=== PATIENT | male | born 1980 | race Native Hawaiian/Other Pacific Islander ===

== ENCOUNTER 2017-12-22 11:15 | Emergency (ER) | payer OTHER ==
[~2017-12-22] VITALS: Ht 170.2 cm; Wt 172.4 kg
[2017-12-22 11:18] VITALS: TEMP 98.2
[2017-12-22 13:05] VITALS: BP 152/85
== END 2017-12-22 13:05 | disposition home or self-care (01) ==
LOC: ED 11:15
DX: J40 Bronchitis, not specified as acute or chronic (principal)
CPT/HCPCS: 93005; 99283

== ENCOUNTER 2018-08-30 16:37 | Inpatient (IN) | payer OTHER ==
[~2018-08-30] VITALS: Ht 170.2 cm; Wt 164.8 kg
[2018-08-30 16:48] VITALS: BP 125/84; TEMP 99.6
[2018-08-30 18:03] LABS: PLATELET COUNT 226 K/uL (142-355)
[2018-08-30 18:07] VITALS: TEMP 99.9
[2018-08-30 18:07] LABS: POTASSIUM 3.9 mmol/L (3.6-5.2); SODIUM 132 mmol/L (136-145)
[2018-08-31 01:16] VITALS: BP 166/92; TEMP 99.9; Ht 170.2 cm; Wt 164.8 kg
--- NOTE | 2018-08-31 01:30 | NUR ---
LATE ENTRY FROM 08/30/18 AT 2020. PATIENT BROUGHT TO ROOM FROM ER IN A WHEELCHAIR. PATIENT ORIENTED TO ROOM. CALL LIGHT EXPLAINED AND PLACED WITHIN REACH. PATIENT IN STABLE CONDITION.
--- NOTE | 2018-08-31 01:34 | NUR ---
LATE ENTRY FROM 08/30/18 AT 2020 ON INITIAL ASSESSMENT PATIENT HAS REDNESS TO LEFT LEG FROM BEHIND THE KNEE DOWN TO CALF. NO SWELLING NOTED TO LEFT LEG. NEGATIVE HARRIS'S SIGN.
[2018-08-31 04:18] VITALS: BP 137/76; TEMP 100.7
--- NOTE | 2018-08-31 04:19 | NUR ---
PATIENT WAS ADMITTED WITH ELEVATED D-DIMER, BRONCHITIS AND ACUTE CELLULITIS TO LEFT LEG, IBW 148+/-10% AND IS 234%IBW, BMI 54 AND IS HIGHER THAN THE HGHEST STAGE OF OBESITY AND IS ON A REGULAR DIET PLAN. KCAL NEEDS FOR IBW [id number] AND FOR WEIGHT <4200 TO PROMOTE WEIGHT LOSS IS NEEDED. PROTEIN NEEDS FOR IBW 67 GRAMS AND FOR WEIGHT 158 GRAMS AND FLUID NEEDS = [id number] ML PER DAY. RECOMMEND: 1- CHANGE TO A NCS DIET PLAN 2- IF THE CELLULITIS IS OPNE ADD VIT C 500 MG BID AND [id number] 220 MG PER DAY.
[2018-08-31 05:37] LABS: PLATELET COUNT 197 K/uL (142-355)
[2018-08-31 06:01] LABS: POTASSIUM 3.5 mmol/L (3.6-5.2)
[2018-08-31 08:00] VITALS: BP 130/66; TEMP 99
[2018-08-31 12:00] VITALS: BP 107/53; TEMP 98.8
[2018-08-31 16:02] VITALS: BP 123/64; TEMP 98.7
[2018-08-31 20:23] VITALS: BP 120/64; TEMP 99.3
[2018-09-01] VITALS: BP 110/70; TEMP 99.3
[2018-09-01 04:00] VITALS: BP 110/71; TEMP 99.3
[2018-09-01 04:06] LABS: PLATELET COUNT 187 K/uL (142-355)
[2018-09-01 06:14] LABS: POTASSIUM 3.7 mmol/L (3.6-5.2)
[2018-09-01 08:00] VITALS: BP 133/75; TEMP 98.6
--- NOTE | 2018-09-01 10:46 | NUR ---
1000 MARK AT BS AT THIS TIME. LEFT LOWER EXT MORE EDEMATOUS THIS AM. REDNESS MORE PROMINENT TO LOWER EXT AND EXTENDS UPWARDS TO UPPER THIGH. MARK AWARE. WILL CON'T TO MONITOR
[2018-09-01 12:00] VITALS: BP 128/66; TEMP 98.4
[2018-09-01 16:00] VITALS: BP 117/57; TEMP 98.3
[2018-09-01 20:00] VITALS: BP 134/68; TEMP 98.6
[2018-09-02] VITALS: BP 107/58; TEMP 98.4
[2018-09-02 04:00] VITALS: BP 109/72; TEMP 98.4
[2018-09-02 07:08] LABS: PLATELET COUNT 194 K/uL (142-355)
--- NOTE | 2018-09-02 07:45 | NUR ---
AM ASSESSMENT COMPLETE
[2018-09-02 08:06] VITALS: BP 124/51; TEMP 98.4
[2018-09-02 08:18] LABS: POTASSIUM 3.8 mmol/L (3.6-5.2)
--- NOTE | 2018-09-02 09:08 | NUR ---
PT STATES THAT THE COVER BOTHERS HIS LEG. I OFFERED TO DRAPE COVER OVER END OF BED TO KEEP COVER FROM TOUCHING PTS LEG, PT STATED THAT IT WAS NOT NECESSARRY TO DO THAT.
[2018-09-02 12:20] VITALS: BP 122/63; TEMP 98.3
--- NOTE | 2018-09-02 14:45 | NUR ---
LAB DRAW ATTEMPT, NO RESULT.
[2018-09-02 16:09] VITALS: BP 120/68; TEMP 98.7
--- NOTE | 2018-09-02 17:24 | NUR ---
FAMILY AT BS
[2018-09-02 20:00] VITALS: BP 124/64; TEMP 99
[2018-09-03] VITALS: BP 124/73; TEMP 98.8
[2018-09-03 04:00] VITALS: BP 130/71; TEMP 98.3
[2018-09-03 07:02] LABS: PLATELET COUNT 242 K/uL (142-355)
[2018-09-03 07:11] LABS: POTASSIUM 3.7 mmol/L (3.6-5.2)
--- NOTE | 2018-09-03 08:00 | NUR ---
RIGHT CALF MEASURES 47 1/2 CM LEFT CALF REDDENED AND WARM TO TOUCH, MEASURES 53 1/2 CM
[2018-09-03 08:03] VITALS: BP 117/51; TEMP 98.4
[2018-09-03 12:11] VITALS: BP 117/51; TEMP 98.4
[2018-09-03 16:03] VITALS: BP 136/69; TEMP 98.4
[2018-09-03 20:07] VITALS: BP 145/75; TEMP 98.4
[2018-09-04 00:06] VITALS: BP 117/52; TEMP 98.7
[2018-09-04 04:00] VITALS: BP 110/62; TEMP 98.3
[2018-09-04 06:09] LABS: PLATELET COUNT 218 K/uL (142-355)
[2018-09-04 06:29] LABS: POTASSIUM 4.1 mmol/L (3.6-5.2)
[2018-09-04 08:04] VITALS: BP 126/60; TEMP 98.2
[2018-09-04] MEDS ORDERED: 904272561 PO (10:13)
[2018-09-04] MEDS ORDERED: TRAM50TA PO (10:13)
--- NOTE | 2018-09-04 12:00 | NUR ---
PTS IV ANTIBIOTIC COMPLETE. D/C ORDERS PLACED BY JACINTA LANGFORD. IV D/C'D. TELE D/C'D. PT INSTRUCTED TO MAKE FU WITH PCP IN 3-5 DAYS. PT GIVEN PRESCRIPTION FOR PAIN MEDICINE AND ORAL ANTIBIOTICS. ALL D/C INSTRUCTIONS GIVEN. PT HAS NO FUTHER QUESTIONS. NO PROBLEMS NOTED. PT AMBULATED OUT AT THIS TIME.
[2018-09-04 12:27] VITALS: BP 156/80; TEMP 97.7
== END 2018-09-04 11:50 | disposition home or self-care (01) | DRG 603 ==
LOC: ED 16:37 → MED/SURG 19:20
PROVIDERS: Emergency Medicine
DX: L03.116 Cellulitis of left lower limb (principal); E87.1 Hypo-osmolality and hyponatremia; G47.33 Obstructive sleep apnea (adult) (pediatric); R73.03 Prediabetes; Z79.01 Long term (current) use of anticoagulants
CPT/HCPCS: 36415; 80053; 80202; 81000; 82550; 82553; 83036; 83605; 84484; 85027; 85379; 99283; J0696; J1650; J2175; J3370; J3490; Q9963

== ENCOUNTER 2019-04-15 22:33 | Emergency (ER) | payer OTHER ==
[~2019-04-15] VITALS: Ht 170.2 cm; Wt 152.0 kg
[~2019-04-15 22:33] MED LIST: 904272561 PO; TRAM50TA PO
[2019-04-15 22:40] VITALS: BP 136/77; TEMP 97.8
== END 2019-04-15 23:43 | disposition home or self-care (01) ==
LOC: ED 22:33
DX: L03.116 Cellulitis of left lower limb (principal)
CPT/HCPCS: 99282; 99283

== ENCOUNTER 2020-04-04 16:52 | Emergency (ER) | payer OTHER ==
[~2020-04-04] VITALS: Ht 170.2 cm; Wt 152.0 kg
[2020-04-04 18:09] LABS: PLATELET COUNT 168 K/uL (142-355)
[2020-04-04 18:19] LABS: POTASSIUM 4.2 mmol/L (3.6-5.2); SODIUM 136 mmol/L (136-145)
[2020-04-05 02:00] VITALS: BP 132/78; TEMP 98.3
== END 2020-04-05 02:00 | disposition still patient (30) ==
LOC: ED 16:52
PROVIDERS: Emergency Medicine
DX: J18.0 Bronchopneumonia, unspecified organism (principal); U07.1 COVID-19; F17.210 Nicotine dependence, cigarettes, uncomplicated; Z11.59 Encounter for screening for other viral diseases
CPT/HCPCS: 80053; 82550; 82553; 83605; 84484; 85027; 85379; 87040; 87635; 93005; 96360; 96372; 96375; 99284; J0696; J1885; U0003

== ENCOUNTER 2020-09-10 19:06 | Observation (INO) | payer OTHER ==
[~2020-09-10] VITALS: Ht 170.2 cm; Wt 169.0 kg
[2020-09-10 19:18] VITALS: BP 126/64; TEMP 98.4
[2020-09-10 19:30] VITALS: BP 126/72
[2020-09-10 19:49] LABS: PLATELET COUNT 229 K/uL (142-355)
[2020-09-10 19:56] LABS: POTASSIUM 3.9 mmol/L (3.6-5.2); SODIUM 132 mmol/L (136-145)
[2020-09-10 20:00] VITALS: BP 118/74
[2020-09-10 20:30] VITALS: BP 125/74
[2020-09-10 22:40] VITALS: BP 138/85; TEMP 99.6; Ht 170.2 cm; Wt 169.0 kg
[2020-09-11] VITALS: BP 96/45; TEMP 97.9
[2020-09-11 04:12] VITALS: BP 132/75; TEMP 99.5
[2020-09-11 08:00] VITALS: BP 138/75; TEMP 98.3
[2020-09-11 12:00] VITALS: BP 115/67; TEMP 98
[2020-09-11 16:00] VITALS: BP 151/68; TEMP 98.3
== END 2020-09-11 20:10 | disposition home or self-care (01) ==
LOC: ED 19:06 → MED/SURG 20:45
PROVIDERS: Emergency Medicine Emergency Medical Services; ADMIT Internal Medicine Endocrinology, Diabetes & Metabolism; ATTEND Internal Medicine Endocrinology, Diabetes & Metabolism
DX: R07.89 Other chest pain (principal); L03.116 Cellulitis of left lower limb; E66.01 Morbid (severe) obesity due to excess calories; I11.0 Hypertensive heart disease with heart failure; I50.9 Heart failure, unspecified; Z91.19 Patient's noncompliance with other medical treatment and regimen; R06.09 Other forms of dyspnea; G47.33 Obstructive sleep apnea (adult) (pediatric)
CPT/HCPCS: 36415; 80053; 83605; 83735; 84484; 85027; 85379; 85610; 87040; 87635; 93005; 96360; 96361; 96365; 96366; 96367; 96372; 99220; 99284; G0378; J1650; J2543; U0003

== ENCOUNTER 2022-01-17 18:35 | Inpatient (IN) | payer OTHER ==
[~2022-01-17] VITALS: Ht 170.2 cm; Wt 176.7 kg
[2022-01-17 18:35] VITALS: BP 103/71; TEMP 101.4
[2022-01-17 19:18] LABS: PLATELET COUNT 202 K/uL (142-355)
[2022-01-17 19:29] LABS: POTASSIUM 3.6 mmol/L (3.6-5.2)
[2022-01-17 22:10] VITALS: TEMP 98.7
[2022-01-18 01:56] VITALS: BP 103/47; TEMP 98.7; Ht 170.2 cm; Wt 176.7 kg
[2022-01-18 03:49] VITALS: BP 144/73; TEMP 98.8
[2022-01-18 05:03] LABS: PLATELET COUNT 187 K/uL (142-355)
[2022-01-18 08:00] VITALS: BP 137/58; TEMP 97.7
[2022-01-18 12:00] VITALS: BP 131/55; TEMP 98.1
[2022-01-18 16:00] VITALS: BP 124/62; TEMP 100.2
[2022-01-18 20:08] VITALS: BP 146/78; TEMP 97.8
[2022-01-19] VITALS (7 sets, daily range): BP systolic 107–156; BP diastolic 60–80; TEMP 97.8–99.6
[2022-01-19 04:56] LABS: PLATELET COUNT 182 K/uL (142-355)
[2022-01-19 05:25] LABS: POTASSIUM 3.9 mmol/L (3.6-5.2)
[2022-01-20 03:48] VITALS: BP 127/74; TEMP 98.4
[2022-01-20 05:19] LABS: PLATELET COUNT 174 K/uL (142-355)
[2022-01-20 05:52] LABS: POTASSIUM 3.3 mmol/L (3.6-5.2)
[2022-01-20 08:00] VITALS: BP 113/54; TEMP 98.9
[2022-01-20 12:00] VITALS: BP 111/49; TEMP 98.9
[2022-01-20 16:00] VITALS: BP 125/62; TEMP 97.3
[2022-01-20 20:00] VITALS: BP 133/67; TEMP 97.4
[2022-01-21] VITALS: BP 107/63; TEMP 97.8
[2022-01-21 04:00] VITALS: BP 110/70; TEMP 97.5
[2022-01-21 08:00] VITALS: BP 132/73; TEMP 97.4
[2022-01-21 12:06] VITALS: BP 142/79; TEMP 98
[2022-01-21 16:00] VITALS: BP 137/67; TEMP 98
[2022-01-21 20:00] VITALS: BP 133/64; TEMP 97.9
[2022-01-22] VITALS (7 sets, daily range): BP systolic 118–140; BP diastolic 50–72; TEMP 97.6–99.1
[2022-01-22 05:17] LABS: POTASSIUM 3.2 mmol/L (3.6-5.2)
[2022-01-22 05:22] LABS: PLATELET COUNT 192 K/uL (142-355)
[2022-01-23 04:18] VITALS: BP 141/77; TEMP 97.5
[2022-01-23 08:00] VITALS: BP 143/73; TEMP 97.8
[2022-01-23] MEDS ORDERED: HYDR5TAB9 PO (08:32)
[2022-01-23] MEDS ORDERED: LEVAQUIN250 MG PO (08:33)
[2022-01-23] MEDS ORDERED: CLIN300C PO (08:34)
== END 2022-01-23 11:15 | disposition home or self-care (01) | DRG 603 ==
LOC: ED 18:35 → MED/SURG 23:45
PROVIDERS: Emergency Medicine; Internal Medicine; ADMIT Internal Medicine; ATTEND Internal Medicine
DX: L03.116 Cellulitis of left lower limb (principal); E66.2 Morbid (severe) obesity with alveolar hypoventilation; Z68.43 Body mass index [BMI] 50.0-59.9, adult; E87.3 Alkalosis; Z91.19 Patient's noncompliance with other medical treatment and regimen; R09.02 Hypoxemia; D72.818 Other decreased white blood cell count; D72.828 Other elevated white blood cell count; Z72.0 Tobacco use; R91.8 Other nonspecific abnormal finding of lung field; E11.9 Type 2 diabetes mellitus without complications
CPT/HCPCS: 36415; 36600; 80048; 80053; 80202; 81000; 82805; 83880; 84484; 85027; 85379; 85610; 87040; 87635; 93005; 94664; 94760; 96361; 96365; 96372; 96375; 99284; J1650; J1940; J1956; J2405; J2930; J3370; Q9963; U0003

== ENCOUNTER 2022-02-11 07:38 | Emergency (ER) | payer OTHER ==
[~2022-02-11] VITALS: Ht 170.2 cm; Wt 176.4 kg
[~2022-02-11 07:38] MED LIST changes: +CLIN300C PO; +HYDR5TAB9 PO; +LEVAQUIN250 MG PO
[2022-02-11 07:44] VITALS: BP 142/60; TEMP 97.8
[2022-02-11 08:39] LABS: PLATELET COUNT 203 K/uL (142-355)
== END 2022-02-11 12:13 | disposition still patient (30) ==
LOC: ED 07:38
PROVIDERS: Emergency Medicine
DX: L03.116 Cellulitis of left lower limb (principal); I82.492 Acute embolism and thrombosis of other specified deep vein of left lower extremity
CPT/HCPCS: 36415; 80053; 85027; 85379; 85610; 87040; 96365; 96372; 99284; J1650; J3370